=== PATIENT | female | born 1970 | race Caucasian/White ===

== ENCOUNTER 2016-12-09 09:18 | Outpatient (CLI) | payer OTHER ==
[~2016-12-09 09:18] MED LIST: ALLEGRA ALLERG180 MG PO; CALCIUM/VITAMI600 MG PO; ESTRADIOL0.5 MG PO; FLONASE AL50 MCG/ACT; MULTIPLE VITAMIN PO; OMEGA 31000 MG PO; PANTOPRAZOLE SO20 MG PO; PERCOCET1 TA4 PO; VENTOLIN HFA IN; VITAMIN C500 M1 PO; ZOFRAN4 MG PO; [UNRECOGNIZED DRUG - REMARK]
--- NOTE | 2016-12-09 09:57 | DIAGNOSTIC IMAGING REPORT ---
PROCEDURE: XR CHEST 2 VIEW INDICATION: COUGH TECHNIQUE: Two views. COMPARISON: None. FINDINGS: The cardiomediastinal contour and central vasculature are within normal limits. The lungs are clear without focal consolidation, pleural effusion, or pneumothorax. The visualized osseous structures are intact. Surgical clips in the gallbladder fossa. IMPRESSION: 1. Normal chest.
== END 2016-12-09 23:00 ==
LOC: XR SRH 09:18
DX: R05 Cough (principal)

== ENCOUNTER 2017-01-04 16:03 | Outpatient (CLI) | payer OTHER ==
--- NOTE | 2017-01-12 09:59 | DIAGNOSTIC IMAGING REPORT ---
PROCEDURE: MG BILATERAL SCREENING W/CAD INDICATION: SCREENING. Maternal great aunt with a history of breast cancer. TECHNIQUE: Bilateral CC and MLO digital views. COMPARISON: Mammograms 01/04/2016, 12/31/2014 and 12/23/2013. FINDINGS: Computer-aided detection applied. Moderately dense. Scattered microcalcifications. No change. IMPRESSION: 1. Negative mammogram RESULT CODE: 1- Negative. A. A negative report should not delay biopsy if a dominant or clinically suspicious mass is present. 10-15% of cancers are not identified by x-ray. B. A negative report may reinforce clinical impression. C. Adenosis and dense breasts may obscure an underlying neoplasm. D. False positive reports average 6-10%. E.. A yearly screening mammogram is recommended. A reminder letter will be scheduled.
== END 2017-01-04 23:00 ==
LOC: MAM SRH 16:03
DX: Z12.31 Encounter for screening mammogram for malignant neoplasm of breast (principal)

== ENCOUNTER 2017-03-04 18:24 | Emergency (ER) | payer OTHER ==
--- NOTE | 2017-03-04 20:19 | ED CLINICAL REPORT ---
Clinical Report - Physicians/Mid Levels [facility] [address] [place] [address] 03/04/2017 18:26 Patient: TOBY ESCAMILLA Time Seen: 19:33. Arrived- By private vehicle. Historian- patient. HISTORY OF PRESENT ILLNESS Chief Complaint: Injury to the right ankle. The injury happened today. Occurred at home. ( pt was going out to feed her horse and states her two very large dogs ran out, knocking her over and she twisted her right ankle. has pain laterally, limping, difficult to bear weight.). The patient sustained a twisting injury. Patient is experiencing moderate pain. No other injury. REVIEW OF SYSTEMS The patient complains of pain on weight bearing. She has had swelling,, tingling, and weakness. All systems otherwise negative, except as recorded above. PAST HISTORY See nurses notes. Tetanus immunization status is up-to-date. Medications: Tita-D Allergy & Congestion Oral. Protonix Oral. Estrogens Conjugated Oral unk. Allergies: No Known Drug Allergy. SOCIAL HISTORY Never smoker. Occasional alcohol use. No drug use. ADDITIONAL NOTES The nursing notes have been reviewed with agreement regarding the chief complaint, HPI, ROS, PMH and patient medications and allergies. PHYSICAL EXAM Appearance: Alert. Oriented X3. No acute distress. Extremities: Moderate soft-tissue tenderness in the right lateral ankle. Mild bony tenderness in the right lateral ankle. Right lateral ankle: moderate tenderness and swelling of the lateral malleolus. Limited ROM secondary to pain, weakness and swelling (diminished plantar flexion, dorsiflexion, inversion and eversion). Small joint effusion present. Neurovascular intact distally. No signs of infection present in the feet or ankles. Extremities otherwise negative. Neuro, Vascular and Tendons: Vascular status intact. Sensation intact. Motor intact. Tendon function intact. Gait: Gait not tested due to pain. LABS, X-RAYS, AND EKG X-Rays: X-rays are normal. Right ankle negative. The X-rays were independently viewed by me and interpreted contemporaneously by me. PROGRESS AND PROCEDURES Splint Application: Posterior short leg fiberglass splint applied to right ankle and lower leg. Splint applied by nurse with direct supervision by me. Reassessed extremity following splint application. Neurovascular intact. Follow-up recommended within 3 days. they have their own crutches. Course of Care: Patient is stable. Physical exam findings are improved. Symptoms better. CLINICAL IMPRESSION Sprain of the deltoid and talofibular ligament of the right ankle. INSTRUCTIONS Apply ice for 15 minutes four times a day for three days followed by moist heat 10 minutes three times a day for three days as needed and until better. Wear fiberglass splint for one weeks as needed and until better. No strenuous activity. You may walk and bear weight as tolerated. Do not work for three days until better. No dietary restrictions. Warnings: COMPLICATIONS: Complications from this condition are possible. Future problems may include pain. It is important to follow up with a physician for further evaluation and treatment. CONTROLLED SUBSTANCE WARNINGS. GENERAL WARNINGS: Return or contact your physician immediately if your condition worsens or changes unexpectedly, if not improving as expected, or if other problems arise. Your Current Medications: CONTINUE TAKING THE FOLLOWING MEDICATIONS: Tita-D Allergy & Congestion Oral. Estrogens Conjugated Oral : unk. Protonix Oral. Prescription Medications: Oxycodone/APAP 5 mg/325 mg: take 1 tablet orally every 6 hours as needed for pain. Dispense twelve (12). No refill. Follow-up: Follow up with a stretch machine operator- as recommended by your primary care physician- in one week. Reason for referral: right ankle sprain. Understanding of the discharge instructions verbalized by patient and family. Follow-up with: Israel Wong DPM, Podiatry, , [facility], [address] [place] [address], [address] [place] [address] Follow up Monday. Call for an appointment. Reason for referral: right ankle sprain. (Electronically signed by Shauna Sewell PA-C 03/04/2017 22:37)
--- NOTE | 2017-03-04 20:19 | ED ORDER SUMMARY ---
..... Patient: TOBY ESACMILLA OrderSheet [facility] VisitID: [id number] [address] [place] [address] 46y, F Registration Date/Time: 03/04/2017 ORDER SHEET Weight: 98.4 kg Allergies: No Known Drug Allergy GENERAL ORDERS: Ankle 3 or 4V Right (twisted right ankle, swelling laterally) Urgent (19:33 03/04/2017 ABlanchette PA-C) (Ack 19:35 AMcQuoid ER Tech1) (20:08 RFay) Splint (LE) (Right) (Short Leg Posterior) (Fiberglass) (20:16 03/04/2017 ABlanchette PA-C) (20:27 HSoule) MEDICATION ORDERS: Percocet PO 5/325 mg (NOW) (19:41 03/04/2017 TBowen R.N. verbal order read back to ABlanchette PA-C) (19:58 TBowen R.N.) Verbal order read back and verified Zofran ODT PO 4 mg (NOW) (19:42 03/04/2017 TBowen R.N. verbal order read back to ABlanchette PA-C) (19:59 TBowen R.N.) Verbal order read back and verified IV FLUIDS: ORDER SHEET NOTES: [Electronically signed by Geno Aguirre R.N. (20:40 03/04/2017)] [Electronically signed by Shauna Sewell PA-C (22:37 03/04/2017)] [Electronically locked/signed by Geno Aguirre R.N. (20:40 03/04/2017)]
--- NOTE | 2017-03-04 20:19 | ED CLINICAL REPORT ---
Clinical Report - Physicians/Mid Levels [facility] [address] [place] [address] 03/04/2017 18:26 Patient: TOBY ESCAMILLA Time Seen: 19:33. Arrived- By private vehicle. Historian- patient. HISTORY OF PRESENT ILLNESS Chief Complaint: Injury to the right ankle. The injury happened today. Occurred at home. ( pt was going out to feed her horse and states her two very large dogs ran out, knocking her over and she twisted her right ankle. has pain laterally, limping, difficult to bear weight.). The patient sustained a twisting injury. Patient is experiencing moderate pain. No other injury. REVIEW OF SYSTEMS The patient complains of pain on weight bearing. She has had swelling,, tingling, and weakness. All systems otherwise negative, except as recorded above. PAST HISTORY See nurses notes. Tetanus immunization status is up-to-date. Medications: Tita-D Allergy & Congestion Oral. Protonix Oral. Estrogens Conjugated Oral unk. Allergies: No Known Drug Allergy. SOCIAL HISTORY Never smoker. Occasional alcohol use. No drug use. ADDITIONAL NOTES The nursing notes have been reviewed with agreement regarding the chief complaint, HPI, ROS, PMH and patient medications and allergies. PHYSICAL EXAM Appearance: Alert. Oriented X3. No acute distress. Extremities: Moderate soft-tissue tenderness in the right lateral ankle. Mild bony tenderness in the right lateral ankle. Right lateral ankle: moderate tenderness and swelling of the lateral malleolus. Limited ROM secondary to pain, weakness and swelling (diminished plantar flexion, dorsiflexion, inversion and eversion). Small joint effusion present. Neurovascular intact distally. No signs of infection present in the feet or ankles. Extremities otherwise negative. Neuro, Vascular and Tendons: Vascular status intact. Sensation intact. Motor intact. Tendon function intact. Gait: Gait not tested due to pain. LABS, X-RAYS, AND EKG X-Rays: X-rays are normal. Right ankle negative. The X-rays were independently viewed by me and interpreted contemporaneously by me. PROGRESS AND PROCEDURES Splint Application: Posterior short leg fiberglass splint applied to right ankle and lower leg. Splint applied by nurse with direct supervision by me. Reassessed extremity following splint application. Neurovascular intact. Follow-up recommended within 3 days. they have their own crutches. Course of Care: Patient is stable. Physical exam findings are improved. Symptoms better. CLINICAL IMPRESSION Sprain of the deltoid and talofibular ligament of the right ankle. INSTRUCTIONS Apply ice for 15 minutes four times a day for three days followed by moist heat 10 minutes three times a day for three days as needed and until better. Wear fiberglass splint for one weeks as needed and until better. No strenuous activity. You may walk and bear weight as tolerated. Do not work for three days until better. No dietary restrictions. Warnings: COMPLICATIONS: Complications from this condition are possible. Future problems may include pain. It is important to follow up with a physician for further evaluation and treatment. CONTROLLED SUBSTANCE WARNINGS. GENERAL WARNINGS: Return or contact your physician immediately if your condition worsens or changes unexpectedly, if not improving as expected, or if other problems arise. Your Current Medications: CONTINUE TAKING THE FOLLOWING MEDICATIONS: Tita-D Allergy & Congestion Oral. Estrogens Conjugated Oral : unk. Protonix Oral. Prescription Medications: Oxycodone/APAP 5 mg/325 mg: take 1 tablet orally every 6 hours as needed for pain. Dispense twelve (12). No refill. Follow-up: Follow up with a special service representative- as recommended by your primary care physician- in one week. Reason for referral: right ankle sprain. Understanding of the discharge instructions verbalized by patient and family. Follow-up with: Israel Wong DPM, Podiatry, , [facility], [address] [place] [address], [address] [place] [address] Follow up Monday. Call for an appointment. Reason for referral: right ankle sprain. (Electronically signed by Shauna Sewell PA-C 03/04/2017 22:37)
--- NOTE | 2017-03-04 20:19 | ED NURSING NOTES ---
Clinical Report - Nurses [facility] [address] [place] [address] 03/04/2017 18:26 Patient: TOBY ESCAMILLA TRIAGE Triage time 19:33. Acuity: LEVEL 3. Chief Complaint: INJURY TO RIGHT ANKLE. --19:38 Maday Tao. 19:32 03/04/17. BP: 144/108. HR: 74. RR: 16. O2 saturation: 99%. Temp: 97.9 F. Pain level now: 07/25. --19:38 Maday Tao. Weight: 98.4 kg. Height/Length: 70 inches. BMI: 31.1. --19:36 Dinh R.N. Medications Estrogens Conjugated Oral unk. --19:33 Maday Tao. Protonix Oral. --19:34 Maday Tao. Tita-D Allergy & Congestion Oral. --19:34 Maday Tao. Allergies No Known Drug Allergy. --19:33 Maday Tao. History Arrived by private vehicle. Historian: patient. Accompanied by family. ( pt tripped over her dog and twisted her right ankle). 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 SOCIAL HX: Light tobacco smoker. Occasional alcohol use. No drug use. No infectious disease exposure. SELF HARM ASSESSMENT: A self harm assessment was performed. The patient answered "no" to the question "Have you recently felt down, depressed, or hopeless?", "Have you noticed less interest or pleasure in doing things?", "Do you have thoughts of harming or killing yourself?", "Are you here because you tried to hurt yourself?", "Have you ever tried to hurt yourself before today?", "Have you recently had thoughts about harming or killing others?" and "Do you have any dangerous items in your possession?". FALL RISK ASSESSMENT: Fall risk assessment completed. No fall risk identified. NUTRITIONAL RISK ASSESSMENT: The nutritional risk assessment revealed no deficiencies. FUNCTIONAL ASSESSMENT: Functional assessment: no impairments noted. LEARNING NEEDS ASSESSMENT: The learning needs assessment revealed no barriers. ABUSE ASSESSMENT: Abuse assessment: The patient was asked "Do you feel safe in your home?". SKIN INTEGRITY ASSESSMENT: Skin integrity risk assessment completed. No skin integrity risk identified. --19:38 Agus Tao PROBLEMS: Allergies. Gastroesophageal Reflux Disease. --19:35 Maday Tao. ADDITIONAL SURGERIES: Gallbladder Surgery. Hysterectomy. Nasal septoplasty. --19:34 Maday Tao. Interventions ID band on patient. To treatment room. --19:38 Agus Toa PHYSICAL ASSESSMENT To room via wheelchair. GENERAL / NEURO / PSYCH: Oriented X 4. Alert. Appears in no acute distress. EXTREMITIES: Capillary refill is less than 2 seconds in the extremities. Extremity pulses are within normal limits. Extremities exhibit normal ROM. Neuro-vascular status intact to the extremity. Normal gait. Right posterior ankle: tenderness and swelling. SKIN: Skin intact. Skin is warm and dry. --19:38 Agus Tao NURSING PROGRESS NOTES Patient identifiers checked. Call light placed in reach. Side rails up x 1. Bed placed in lowest position. Brakes of bed on. --19:39 Agus Tao 19:48 03/04/2017 Percocet (Oxycodone-Acetaminophen) PO 5/325 mg Tablets 1 tab given. Allergies verified, confirmed 5 rights and sedative warning given to the patient and patient's family. --19:58 Agus Tao 19:49 03/04/2017 Zofran ODT (Ondansetron) PO 4 mg given. Allergies verified and confirmed 5 rights. --19:59 Maday Tao. Short leg fiberglass lower extremity splint applied to right ankle by nurse. Distal pulses intact, sensation intact and motor within normal limits. --20:39 Agus Tao DISPOSITION / DISCHARGE Departure time: 20:40. Condition at departure: improved. No learning barriers present. Discharge instructions provided and reviewed with the patient. Reviewed warnings (no driving with pain medication). Reviewed medication(s) side effects, precautions, dosing and course information. Prescription(s) given to the patient. Reviewed referral to a material control specialist. Work note given. Patient verbalized understanding. Written instructions provided in Citizen Of [place]. No treatment instructions, diet instructions, activity restrictions, follow up contact number given or stop smoking instructions. The patient was discharged by the nurse practitioner. She was discharged home and accompanied by spouse. She left the Emergency Department in a wheelchair and via private vehicle. Spouse driving. FALL RISK ASSESSMENT: Fall risk assessment completed. No fall risk identified. --20:40 Agus Tao 20:39 03/04/17. BP: deferred. HR: deferred. RR: deferred. O2 saturation: deferred. Temp: deferred. Pain level now: 01/23. --20:40 Agus Tao Locked/Released at 03/04/2017 20:40 by Agus Tao
--- NOTE | 2017-03-04 20:19 | ED ORDER SUMMARY ---
..... Patient: TOBY ESCAMILLA OrderSheet [facility] VisitID: [id number] [address] [place] [address] 46y, F Registration Date/Time: 03/04/2017 ORDER SHEET Weight: 98.4 kg Allergies: No Known Drug Allergy GENERAL ORDERS: Ankle 3 or 4V Right (twisted right ankle, swelling laterally) Urgent (19:33 03/04/2017 ABlanchette PA-C) (Ack 19:35 AMcQuoid ER Tech1) (20:08 RFay) Splint (LE) (Right) (Short Leg Posterior) (Fiberglass) (20:16 03/04/2017 ABlanchette PA-C) (20:27 HSoule) MEDICATION ORDERS: Percocet PO 5/325 mg (NOW) (19:41 03/04/2017 TBowen R.N. verbal order read back to ABlanchette PA-C) (19:58 TBowen R.N.) Verbal order read back and verified Zofran ODT PO 4 mg (NOW) (19:42 03/04/2017 TBowen R.N. verbal order read back to ABlanchette PA-C) (19:59 TBowen R.N.) Verbal order read back and verified IV FLUIDS: ORDER SHEET NOTES: [Electronically signed by Geno Aguirre R.N. (20:40 03/04/2017)] [Electronically signed by Shauna Sewell PA-C (22:37 03/04/2017)] [Electronically locked/signed by Geno Aguirre R.N. (20:40 03/04/2017)]
--- NOTE | 2017-03-04 20:19 | ED NURSING NOTES ---
Clinical Report - Nurses [facility] [address] [place] [address] 03/04/2017 18:26 Patient: TOBY ESCAMILLA TRIAGE Triage time 19:33. Acuity: LEVEL 3. Chief Complaint: INJURY TO RIGHT ANKLE. --19:38 Maday Tao. 19:32 03/04/17. BP: 144/108. HR: 74. RR: 16. O2 saturation: 99%. Temp: 97.9 F. Pain level now: 07/25. --19:38 Maday Tao. Weight: 98.4 kg. Height/Length: 70 inches. BMI: 31.1. --19:36 Dinh R.N. Medications Estrogens Conjugated Oral unk. --19:33 Maday Tao. Protonix Oral. --19:34 Maday Tao. Tita-D Allergy & Congestion Oral. --19:34 aMday Tao. Allergies No Known Drug Allergy. --19:33 Maday Tao. History Arrived by private vehicle. Historian: patient. Accompanied by family. ( pt tripped over her dog and twisted her right ankle). 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 SOCIAL HX: Light tobacco smoker. Occasional alcohol use. No drug use. No infectious disease exposure. SELF HARM ASSESSMENT: A self harm assessment was performed. The patient answered "no" to the question "Have you recently felt down, depressed, or hopeless?", "Have you noticed less interest or pleasure in doing things?", "Do you have thoughts of harming or killing yourself?", "Are you here because you tried to hurt yourself?", "Have you ever tried to hurt yourself before today?", "Have you recently had thoughts about harming or killing others?" and "Do you have any dangerous items in your possession?". FALL RISK ASSESSMENT: Fall risk assessment completed. No fall risk identified. NUTRITIONAL RISK ASSESSMENT: The nutritional risk assessment revealed no deficiencies. FUNCTIONAL ASSESSMENT: Functional assessment: no impairments noted. LEARNING NEEDS ASSESSMENT: The learning needs assessment revealed no barriers. ABUSE ASSESSMENT: Abuse assessment: The patient was asked "Do you feel safe in your home?". SKIN INTEGRITY ASSESSMENT: Skin integrity risk assessment completed. No skin integrity risk identified. --19:38 Agus Tao PROBLEMS: Allergies. Gastroesophageal Reflux Disease. --19:35 Maday Tao. ADDITIONAL SURGERIES: Gallbladder Surgery. Hysterectomy. Nasal septoplasty. --19:34 Maday Tao. Interventions ID band on patient. To treatment room. --19:38 Agus Tao PHYSICAL ASSESSMENT To room via wheelchair. GENERAL / NEURO / PSYCH: Oriented X 4. Alert. Appears in no acute distress. EXTREMITIES: Capillary refill is less than 2 seconds in the extremities. Extremity pulses are within normal limits. Extremities exhibit normal ROM. Neuro-vascular status intact to the extremity. Normal gait. Right posterior ankle: tenderness and swelling. SKIN: Skin intact. Skin is warm and dry. --19:38 Agus Tao NURSING PROGRESS NOTES Patient identifiers checked. Call light placed in reach. Side rails up x 1. Bed placed in lowest position. Brakes of bed on. --19:39 Agus Tao 19:48 03/04/2017 Percocet (Oxycodone-Acetaminophen) PO 5/325 mg Tablets 1 tab given. Allergies verified, confirmed 5 rights and sedative warning given to the patient and patient's family. --19:58 Agus Tao 19:49 03/04/2017 Zofran ODT (Ondansetron) PO 4 mg given. Allergies verified and confirmed 5 rights. --19:59 Maday Tao. Short leg fiberglass lower extremity splint applied to right ankle by nurse. Distal pulses intact, sensation intact and motor within normal limits. --20:39 Agus Tao DISPOSITION / DISCHARGE Departure time: 20:40. Condition at departure: improved. No learning barriers present. Discharge instructions provided and reviewed with the patient. Reviewed warnings (no driving with pain medication). Reviewed medication(s) side effects, precautions, dosing and course information. Prescription(s) given to the patient. Reviewed referral to a program advisor. Work note given. Patient verbalized understanding. Written instructions provided in Citizen Of [place]. No treatment instructions, diet instructions, activity restrictions, follow up contact number given or stop smoking instructions. The patient was discharged by the nurse practitioner. She was discharged home and accompanied by spouse. She left the Emergency Department in a wheelchair and via private vehicle. Spouse driving. FALL RISK ASSESSMENT: Fall risk assessment completed. No fall risk identified. --20:40 Agus Tao 20:39 03/04/17. BP: deferred. HR: deferred. RR: deferred. O2 saturation: deferred. Temp: deferred. Pain level now: 01/23. --20:40 Agus Tao Locked/Released at 03/04/2017 20:40 by Agus Tao
--- NOTE | 2017-03-04 22:37 | ED MED RECONCILIATION SUMMARY ---
Patient: TOBY ESCAMILLA Medication Reconciliation Report [facility] VisitID: [id number] [address] [place] [address] 46y, F Registration Date/Time: 03/04/2017 Weight: 98.4 kg Height/Length: 70 in. BMI: 31.1 ALLERGIES: No Known Drug Allergy The patient's Home Medications are listed below: CONTINUE TAKING THE FOLLOWING MEDICATIONS: Tita-D Allergy & Congestion Oral Estrogens Conjugated Oral unk Protonix Oral The source(s) of the original Home Medication information: Not obtained. The following Medications were given to the patient in the Emergency Department: Percocet [PO] PO 1 tab, administered: 03/04/2017 7:48:00 PM Zofran ODT [PO] PO 4 mg, administered: 03/04/2017 7:49:00 PM The following Medications were prescribed to the patient: Oxycodone/APAP 5 mg/325 mg: take 1 tablet orally every 6 hours as needed for pain. Dispense twelve (12). No refill. -- Shauna Sewell PA-C
--- NOTE | 2017-03-04 22:37 | ED DISCHARGE INSTRUCTIONS ---
Patient: TOBY ESCAMILLA General Instructions [facility] VisitID: [id number] [place] [address] 46y, F Registration Date/Time: 03/04/2017 Sprain of the deltoid and talofibular ligament of the right ankle. INSTRUCTIONS Apply ice for 15 minutes four times a day for three days followed by moist heat 10 minutes three times a day for three days as needed and until better. Wear fiberglass splint for one weeks as needed and until better. No strenuous activity. You may walk and bear weight as tolerated. Do not work for three days until better. No dietary restrictions. Warnings: COMPLICATIONS: Complications from this condition are possible. Future problems may include pain. It is important to follow up with a physician for further evaluation and treatment. CONTROLLED SUBSTANCE WARNINGS. GENERAL WARNINGS: Return or contact your physician immediately if your condition worsens or changes unexpectedly, if not improving as expected, or if other problems arise. Your Current Medications: CONTINUE TAKING THE FOLLOWING MEDICATIONS: Tita-D Allergy & Congestion Oral. Estrogens Conjugated Oral : unk. Protonix Oral. Prescription Medications: Oxycodone/APAP 5 mg/325 mg: take 1 tablet orally every 6 hours as needed for pain. Dispense twelve (12). No refill. Follow-up: Follow up with a crayon grader- as recommended by your primary care physician- in one week. Reason for referral: right ankle sprain. Understanding of the discharge instructions verbalized by patient and family. Follow-up with: Israel Wong DPM, Podiatry, , [facility], [address] [place] [address], [address] [address] Follow up Monday. Call for an appointment. Reason for referral: right ankle sprain. ADDITIONAL INFORMATION Sprain, Ankle,With X-Ray A sprain is an injury to the ligaments or capsule that holds a joint together. There are no broken bones. Most sprains take from four to six weeks to heal. If the ligament is completely torn (severe sprain), it can take several months to recover. Mild to moderate sprains may be treated with an elastic wrap or an in-shoe splint to provide support and prevent re-injury. A mild sprain may not require any additional support. A severe sprain may require surgery to repair. Home care The following guidelines will help you care for your injury at home: Stay off the injured leg as much as possible until you can walk on it without pain. If you have a lot of pain with walking, crutches or a walker may be prescribed. (These can be rented or purchased at many pharmacies and surgical or orthopedic supply stores). Follow your doctor's advice regarding when to begin bearing weight on that leg. Keep your leg elevated to reduce pain and swelling. When sleeping, place a pillow under the injured leg. When sitting, support the injured leg so it is level with your waist. This is very important during the first 48 hours. Apply an ice pack (ice cubes in a plastic bag, wrapped in a towel) over the injured area for 20 minutes every 12 hours the first day. You can place the ice pack directly over the splint/cast. If you were given a boot, open it to apply the ice pack. Continue with ice packs 34 times a day for the next two days, then as needed for the relief of pain and swelling. You may use acetaminophen or ibuprofen to control pain, unless another pain medicine was prescribed. If you have chronic liver or kidney disease or ever had a stomach ulcer or GI bleeding, talk with your doctor before using these medicines. You may return to sports after healing, when you can run without pain. A sprained ankle is at risk for re-injury during the first six weeks. During that time, protect your ankle with an in-shoe splint that prevents tilting of your ankle from side to side. This is very important if you do active work or play sports during that time. Follow-up care Any X-rays you had today dont show any broken bones, breaks, or fractures. Sometimes fractures dont show up on the first X-ray. Bruises and sprains can sometimes hurt as much as a fracture. These injuries can take time to heal completely. If your symptoms dont improve or they get worse, talk with your doctor. You may need a repeat X-ray. When to seek medical care Get prompt medical attention if any of the following occur: The plaster cast or splint gets wet or soft The fiberglass cast or splint gets wet and does not dry for 24 hours Pain or swelling increases, or redness appears Toes become cold, blue, numb or tingly Re-injure your ankle You have been given the following additional information: Sprain, Ankle, With X-Ray No strenuous activity. You may walk and bear weight as tolerated. Do not work for three days until better. (Electronically signed by Shauna Sewell PA-C 03/04/2017 22:37)
--- NOTE | 2017-03-04 22:37 | ED MAR SUMMARY ---
..... Medication Administration Record [facility] [address] [place] [address] [address] Patient: TOBY ESCAMILLA Visit ID: [id number] 46y, F Weight: 98.4 kg Height/Length: 70 in BMI: 31.1 ALLERGIES: No Known Drug Allergy Given 19:48 03/04/2017 Dinh, R.N. Medication Administered: PERCOCET [PO] (OXYCODONE-ACETAMINOPHEN), Dose: 1 tab 5/325 mg Tablets PO. Medication Ordered: Percocet PO 5/325 mg (NOW). Given 19:49 03/04/2017 Dinh, R.N. Medication Administered: ZOFRAN ODT [PO] (ONDANSETRON), Dose: 4 mg PO. Medication Ordered: Zofran ODT PO 4 mg (NOW).
--- NOTE | 2017-03-04 22:37 | ED MED RECONCILIATION SUMMARY ---
Patient: TOBY ESCAMILLA Medication Reconciliation Report [facility] VisitID: [id number] [address] [place] [address] 46y, F Registration Date/Time: 03/04/2017 Weight: 98.4 kg Height/Length: 70 in. BMI: 31.1 ALLERGIES: No Known Drug Allergy The patient's Home Medications are listed below: CONTINUE TAKING THE FOLLOWING MEDICATIONS: Tita-D Allergy & Congestion Oral Estrogens Conjugated Oral unk Protonix Oral The source(s) of the original Home Medication information: Not obtained. The following Medications were given to the patient in the Emergency Department: Percocet [PO] PO 1 tab, administered: 03/04/2017 7:48:00 PM Zofran ODT [PO] PO 4 mg, administered: 03/04/2017 7:49:00 PM The following Medications were prescribed to the patient: Oxycodone/APAP 5 mg/325 mg: take 1 tablet orally every 6 hours as needed for pain. Dispense twelve (12). No refill. -- Shauna Sewell PA-C
--- NOTE | 2017-03-04 22:37 | ED DISCHARGE INSTRUCTIONS ---
Patient: TOBY ESCAMILLA General Instructions [facility] VisitID: [id number] [place] [address] 46y, F Registration Date/Time: 03/04/2017 Sprain of the deltoid and talofibular ligament of the right ankle. INSTRUCTIONS Apply ice for 15 minutes four times a day for three days followed by moist heat 10 minutes three times a day for three days as needed and until better. Wear fiberglass splint for one weeks as needed and until better. No strenuous activity. You may walk and bear weight as tolerated. Do not work for three days until better. No dietary restrictions. Warnings: COMPLICATIONS: Complications from this condition are possible. Future problems may include pain. It is important to follow up with a physician for further evaluation and treatment. CONTROLLED SUBSTANCE WARNINGS. GENERAL WARNINGS: Return or contact your physician immediately if your condition worsens or changes unexpectedly, if not improving as expected, or if other problems arise. Your Current Medications: CONTINUE TAKING THE FOLLOWING MEDICATIONS: Tita-D Allergy & Congestion Oral. Estrogens Conjugated Oral : unk. Protonix Oral. Prescription Medications: Oxycodone/APAP 5 mg/325 mg: take 1 tablet orally every 6 hours as needed for pain. Dispense twelve (12). No refill. Follow-up: Follow up with a principal android developer- as recommended by your primary care physician- in one week. Reason for referral: right ankle sprain. Understanding of the discharge instructions verbalized by patient and family. Follow-up with: Israel Wong DPM, Podiatry, , [facility], [address] [place] [address], [address] [address] Follow up Monday. Call for an appointment. Reason for referral: right ankle sprain. ADDITIONAL INFORMATION Sprain, Ankle,With X-Ray A sprain is an injury to the ligaments or capsule that holds a joint together. There are no broken bones. Most sprains take from four to six weeks to heal. If the ligament is completely torn (severe sprain), it can take several months to recover. Mild to moderate sprains may be treated with an elastic wrap or an in-shoe splint to provide support and prevent re-injury. A mild sprain may not require any additional support. A severe sprain may require surgery to repair. Home care The following guidelines will help you care for your injury at home: Stay off the injured leg as much as possible until you can walk on it without pain. If you have a lot of pain with walking, crutches or a walker may be prescribed. (These can be rented or purchased at many pharmacies and surgical or orthopedic supply stores). Follow your doctor's advice regarding when to begin bearing weight on that leg. Keep your leg elevated to reduce pain and swelling. When sleeping, place a pillow under the injured leg. When sitting, support the injured leg so it is level with your waist. This is very important during the first 48 hours. Apply an ice pack (ice cubes in a plastic bag, wrapped in a towel) over the injured area for 20 minutes every 12 hours the first day. You can place the ice pack directly over the splint/cast. If you were given a boot, open it to apply the ice pack. Continue with ice packs 34 times a day for the next two days, then as needed for the relief of pain and swelling. You may use acetaminophen or ibuprofen to control pain, unless another pain medicine was prescribed. If you have chronic liver or kidney disease or ever had a stomach ulcer or GI bleeding, talk with your doctor before using these medicines. You may return to sports after healing, when you can run without pain. A sprained ankle is at risk for re-injury during the first six weeks. During that time, protect your ankle with an in-shoe splint that prevents tilting of your ankle from side to side. This is very important if you do active work or play sports during that time. Follow-up care Any X-rays you had today dont show any broken bones, breaks, or fractures. Sometimes fractures dont show up on the first X-ray. Bruises and sprains can sometimes hurt as much as a fracture. These injuries can take time to heal completely. If your symptoms dont improve or they get worse, talk with your doctor. You may need a repeat X-ray. When to seek medical care Get prompt medical attention if any of the following occur: The plaster cast or splint gets wet or soft The fiberglass cast or splint gets wet and does not dry for 24 hours Pain or swelling increases, or redness appears Toes become cold, blue, numb or tingly Re-injure your ankle You have been given the following additional information: Sprain, Ankle, With X-Ray No strenuous activity. You may walk and bear weight as tolerated. Do not work for three days until better. (Electronically signed by Shauna Sewell PA-C 03/04/2017 22:37)
--- NOTE | 2017-03-04 22:37 | ED MAR SUMMARY ---
..... Medication Administration Record [facility] [address] [place] [address] Patient: TOBY ESCAMILLA Visit ID: [id number] 46y, F Weight: 98.4 kg Height/Length: 70 in BMI: 31.1 ALLERGIES: No Known Drug Allergy Given 19:48 03/04/2017 Dinh, R.N. Medication Administered: PERCOCET [PO] (OXYCODONE-ACETAMINOPHEN), Dose: 1 tab 5/325 mg Tablets PO. Medication Ordered: Percocet PO 5/325 mg (NOW). Given 19:49 03/04/2017 Dinh, R.N. Medication Administered: ZOFRAN ODT [PO] (ONDANSETRON), Dose: 4 mg PO. Medication Ordered: Zofran ODT PO 4 mg (NOW).
--- NOTE | 2017-03-04 22:48 | DIAGNOSTIC IMAGING REPORT ---
PROCEDURE: XR ANKLE 3 OR 4 VIEWS - RIGHT INDICATION: TRAUMA/INJURY TECHNIQUE: Four views of the right ankle. COMPARISON: None. FINDINGS: Normal mineralization. No fractures. Ankle mortise intact. Normal osseous alignment. Small tibiotalar joint effusion. No suspicious soft-tissue calcification or radiodense foreign bodies. Achilles tendon appears grossly normal. Enthesopathy at the Achilles insertion on the calcaneus. Moderate lateral periarticular soft tissue swelling. Surgical changes in the distal first metatarsal region. IMPRESSION: 1. Intact right ankle. 2. Lateral periarticular soft tissue swelling. 3. Prior surgical change of the first metatarsal head.
== END 2017-03-04 20:30 | disposition home or self-care (01) ==
LOC: ED SRH 18:24
DX: S93.421A Sprain of deltoid ligament of right ankle, initial encounter (principal); S93.491A Sprain of other ligament of right ankle, initial encounter; W54.1XXA Struck by dog, initial encounter; Y93.89 Activity, other specified; Y99.9 Unspecified external cause status; Y92.009 Unspecified place in unspecified non-institutional (private) residence as the place of occurrence of the external cause; Z72.0 Tobacco use

== ENCOUNTER 2017-03-07 08:50 | Outpatient (CLI) | payer OTHER ==
--- NOTE | 2017-03-07 14:18 | DIAGNOSTIC IMAGING REPORT ---
PROCEDURE: MR LOWER EXT JOINT WO CONT-RT INDICATION: RT ANKLE INJURY,EVAL ACHILLES FOR TENDON TEAR TECHNIQUE: T1 and STIR sagittal, axial, coronal and coronal-oblique images. COMPARISON: Right ankle x-ray 03/04/2017. FINDINGS: Torn anterior talofibular ligament with a sprain/partial tear of the calcaneofibular ligament. There is also a partial tear of the deltoid ligaments. The tibiofibular and posterior talofibular ligaments are intact. The peroneus brevis, peroneus longus, flexor hallucis longus, posterior tibialis and flexor digitorum longus tendons are intact. Extensor tendons are also intact. Normal Achilles tendon. Plantar calcaneal spur. Normal sinus tarsi. Degenerative changes between the navicular and medial cuneiform. There is a tibiotalar joint effusion. Extensive subcutaneous edema laterally extending to the dorsum of the foot and to a lesser extent the posterior aspect of the ankle. IMPRESSION: 1. Torn anterior talofibular ligament 2. Partial tear/strain of the calcaneofibular ligament 3. Deltoid ligament partial tear 4. Tibiotalar joint effusion 5. Extensive subcutaneous edema laterally and over the dorsum of the foot, and to a lesser extent posterior medial aspect of the ankle 6. Midfoot degenerative changes 7. Results discussed with Dr. Wong.
== END 2017-03-07 23:00 ==
LOC: MRI SRH 08:50
DX: S93.491A Sprain of other ligament of right ankle, initial encounter (principal); S93.411A Sprain of calcaneofibular ligament of right ankle, initial encounter; S93.421A Sprain of deltoid ligament of right ankle, initial encounter; M25.471 Effusion, right ankle

== ENCOUNTER 2017-03-24 09:00 | Day surgery (SDC) | payer OTHER ==
--- NOTE | 2017-03-23 19:37 | HISTORY AND PHYSICAL ---
ADMITTED: 03/24/2017 HISTORY OF PRESENT ILLNESS: The patient is a 47-year-old female with a chief complaint of a painful right ankle. States that she was outside couple weeks ago and was inadvertently run over by her 2 big dogs. We had an MRI performed at [facility], which revealed torn ligaments of the right ankle. She has been nonweightbearing with the aid of a knee scooter. States the ankle is still painful and she would like to have it surgically repaired. MEDICAL/SURGICAL HISTORY: Past medical history: Includes the history of chest pain, cancer, back problems, hypotension, and asthma. Surgical history: She has had her left and right foot operated on. PCP: Negro Negron MD. MEDICATIONS: 1. Vitamin D 1 p.o. daily. 2. Nortriptyline 10 mg 1 by mouth daily. 3. Pantoprazole 20 mg tablet 1 by mouth daily. 4. Ondansetron HCL 4 mg 1 by mouth daily. 5. ProAir HFA 90 mcg actuation aerosol 1-2 puffs as needed. 6. Rizatriptan 10 mg 1 by mouth daily. ALLERGIES: 1. REPORTS AN ALLERGY TO BEES. SOCIAL HISTORY: She is . 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 Does not drink nor smoke. FAMILY HISTORY: Positive for diabetes. REVIEW OF SYSTEMS: Ten-point review of systems noncontributory to the chief complaint. PHYSICAL EXAMINATION: GENERAL: The patient is alert, oriented x3. HEENT: PERRLA. Normocephalic. Pupils reactive to light. HEART: Regular rate and rhythm. Regular S1 and S2. No murmurs, gallops, or murmurs. LUNGS: Respirations clear to auscultation. No wheezing, rhonchi, or rales. ABDOMEN: Soft, tender, nondistended. No palpable masses. EXTREMITIES: Lower extremity/Vascular: Dorsalis pedis and posterior tibial pulses are palpable. Edema is receding on the anterolateral aspect of the right ankle. Crepitus in the ankle. Pain with palpation to the anterolateral aspect. Positive anterior drawer sign. LAB/IMAGING: Imaging: As stated, had MRI at [facility] revealed a torn anterior talar, calcaneal fibular ligaments. IMPRESSION: 1. Torn lateral ankle collateral ligaments, right. 2. Ankle instability. PLAN: The patient is scheduled for an outpatient procedure consisting of an ankle arthroscopy with debridement and an Arthrex internal brace stabilization procedure. No contraindications to surgery at this time. Surgery is scheduled again on an outpatient basis at [facility] on 03/24/2017.
--- NOTE | 2017-03-23 19:37 | HISTORY AND PHYSICAL ---
ADMITTED: 03/24/2017 HISTORY OF PRESENT ILLNESS: The patient is a 47-year-old female with a chief complaint of a painful right ankle. States that she was outside couple weeks ago and was inadvertently run over by her 2 big dogs. We had an MRI performed at [facility], which revealed torn ligaments of the right ankle. She has been nonweightbearing with the aid of a knee scooter. States the ankle is still painful and she would like to have it surgically repaired. MEDICAL/SURGICAL HISTORY: Past medical history: Includes the history of chest pain, cancer, back problems, hypotension, and asthma. Surgical history: She has had her left and right foot operated on. PCP: Negro Negron MD. MEDICATIONS: 1. Vitamin D 1 p.o. daily. 2. Nortriptyline 10 mg 1 by mouth daily. 3. Pantoprazole 20 mg tablet 1 by mouth daily. 4. Ondansetron HCL 4 mg 1 by mouth daily. 5. ProAir HFA 90 mcg actuation aerosol 1-2 puffs as needed. 6. Rizatriptan 10 mg 1 by mouth daily. ALLERGIES: 1. REPORTS AN ALLERGY TO BEES. SOCIAL HISTORY: She is . 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 Does not drink nor smoke. FAMILY HISTORY: Positive for diabetes. REVIEW OF SYSTEMS: Ten-point review of systems noncontributory to the chief complaint. PHYSICAL EXAMINATION: GENERAL: The patient is alert, oriented x3. HEENT: PERRLA. Normocephalic. Pupils reactive to light. HEART: Regular rate and rhythm. Regular S1 and S2. No murmurs, gallops, or murmurs. LUNGS: Respirations clear to auscultation. No wheezing, rhonchi, or rales. ABDOMEN: Soft, tender, nondistended. No palpable masses. EXTREMITIES: Lower extremity/Vascular: Dorsalis pedis and posterior tibial pulses are palpable. Edema is receding on the anterolateral aspect of the right ankle. Crepitus in the ankle. Pain with palpation to the anterolateral aspect. Positive anterior drawer sign. LAB/IMAGING: Imaging: As stated, had MRI at [facility] revealed a torn anterior talar, calcaneal fibular ligaments. IMPRESSION: 1. Torn lateral ankle collateral ligaments, right. 2. Ankle instability. PLAN: The patient is scheduled for an outpatient procedure consisting of an ankle arthroscopy with debridement and an Arthrex internal brace stabilization procedure. No contraindications to surgery at this time. Surgery is scheduled again on an outpatient basis at [facility] on 03/24/2017.
[~2017-03-24] VITALS: Ht 175.3 cm; Wt 101.7 kg
[2017-03-24] MEDS ORDERED: PERCOCET1 TA4 PO (13:14)
[2017-03-24] MEDS ORDERED: ZOFRAN4 MG PO (13:14)
--- NOTE | 2017-03-24 13:16 | Provider's Discharge Care Plan ---
Problem, Goal, Plan Problem List 1. Sprain of other ligament of right ankle, sequela Goals: Improve function Instructions: Increase activity level
--- NOTE | 2017-03-24 13:16 | Provider's Discharge Care Plan ---
Problem, Goal, Plan Problem List 1. Sprain of other ligament of right ankle, sequela Goals: Improve function Instructions: Increase activity level
[2017-03-24 15:55] VITALS: BP 138/75
--- NOTE | 2017-03-24 19:47 | OPERATIVE REPORT ---
DATE OF SURGERY: 03/24/2017 SURGEON: Israel Wong DPM PREOPERATIVE DIAGNOSIS: 1. Torn ankle ligaments POSTOPERATIVE DIAGNOSES: 1. Hemorrhagic synovitis 2. Torn anterior calcaneofibular ligaments with hematoma PROCEDURES PERFORMED: 1. Ankle arthroscopy with debridement 2. Lateral ankle stabilization and internal brace HEMOSTASIS: Achieved by pneumatic thigh tourniquet inflated to 275 mmHg pressure. TOURNIQUET TIME: Total tourniquet time 72 minutes. MATERIALS: 3-0 and 4-0 Polysorb, 1 internal Arthrex internal brace kit with 2 SwiveLocks, #2 FiberTape and 4-0 Polysorb. INJECTABLES: Injected 20 mL of 0.5% bupivacaine plain. COMPLICATIONS: None. CONDITION: The patient tolerated anesthesia and procedure well. INDICATIONS: The patient is a 47-year-old female who sustained a blunt trauma to her right lateral ankle. She was inadvertently run over by her 2 very large dogs. MRI revealed ruptures of the anterior talocalcaneal fibular ligaments, respectively, and the strain all over the deltoid ligament. There are no contraindications to surgery at this time. She is scheduled for an arthroscopy with debridement, stabilization and collateral ligament repair. There are no contraindications at this time. SURGICAL TECHNIQUE: The patient was brought to the operating room, placed on operating table in a supine position. At this time, a general anesthetic was administered, pneumatic tourniquet was then placed above the right knee. Right lower extremity was prepped and draped in normal sterile fashion. An intraoperative pause was carried out for positive identification, proper limb, consent form verified and confirmed, as well as the 2 g of IV cefazolin was identified as being administered. An Esmarch bandage was then utilized to exsanguinate the limb. Tourniquet was then inflated. Attention was then directed to procedure #1. Ankle arthroscopy with debridement: At this time, the leg was placed in a leg lomeli, and an ankle distractor was then applied. An 18-gauge needle was then used medially on the anterior aspect of the medial gutter. Small incision was made with an 11-blade, portal dissection was carried out. A blunt trocar was then introduced. At this time, the camera was then slowly introduced into the anterior medial gutter. Upon entry, there was noted to be significant hemorrhagic synovitis. Flow was increased and distraction as well, which revealed significant hemorrhagic synovium, as well as remnants of the anterior talofibular ligament seen anterior and laterally aspect of the lateral gutter. Corresponding linear incision was then made on the anterior aspect of the gutter. A deep incision made with 11-blade and dissection carried out via portal dissection. Small joint shaver was then placed. The hemorrhagic synovium and remnants of the anterior talofibular ligament were then debrided. Posterior talofibular ligament was noted to be intact. There are some small deficits in the articulating surface. Slight osteochondral defect noted, particularly posterior and medially. Approximately 3000 L of Lactated Ringer's were placed through the joint. The camera and shaver were then transpositioned in the corresponding portals and any remaining hemorrhagic synovium anterior medial and posterior was resected. The instrumentation was removed. Portals were then reapproximated with 4-0 Polysorb. Attention was then directed to procedure #2. Lateral ankle stabilization: At this time, an incision was made on the anterior distal third of the fibula and curving distally and anteriorly. It was deepened by sharp and blunt dissection. The periosteum was then incised and reflected. Upon reflection of the periosteum, there is noted to be significant hematoma surrounding the anterior and calcaneofibular ligaments, respectively. It was curetted free. Periosteum was then reflected. A guidewire was then driven on the distal anterior fibula directed obliquely and superiorly towards the lateral gutter, verified under fluoroscopy for proper placement. It was then drilled with 2.7 drill, tapped accordingly, and a SwiveLock and #2 FiberTape was inserted. Dissection was then carried anteriorly and medially. A bent Hohmann was then placed superiorly to the neck. The portions of the torn anterior talofibular ligament were resected and removed. A guidewire was then placed anterior and laterally and directed posterior medially towards the medial malleolus. Verified under fluoroscopy for proper placement, as well as being inferior to the articulating surface. It was then drilled with a 2.7 drill, overdrilled with the 3.4 and then tapped. A SwiveLock was loaded with the FiberTape. With the foot held in a neutral position, the FiberTape was then placed under proper tension. The area was flushed. The remaining anterior talofibular ligament was replicated with 3-0 Polysorb. The retinaculum and periosteum was repaired in a [id number] fashion with 3-0 Polysorb, subcutaneous with 4-0 and skin edges reapproximated in running fashion with 4-0 Surgipro. The areas were locally anesthetized with approximately 20 mL of 0.5% bupivacaine. Tourniquet was released at 72 minutes. There was good reactive hyperemia and good digital perfusion. There was no bleeding noted coming from the incisions. Compressive dressing was applied. The patient tolerated anesthesia, left the operating room with vital signs stable. While in recovery, written instructions administered for weightbearing as tolerated with a postoperative boot and knee scooter. I did receive a call from the recovery nurses on the third floor that there was some strike-through bleeding and told them to reinforce the dressing with ABDs and additional Justin bandage. Made her to elevate and ice it. Follow back with me in 3-5 days.
== END 2017-03-24 16:18 | disposition home or self-care (01) ==
LOC: OR SRH 09:00 → SCU SRH 09:04 → OR SRH 09:30
PROVIDERS: Podiatrist
PROC: 0MQQ0ZZ Repair Right Ankle Bursa and Ligament, Open Approach (ICD-10-PCS; principal; 2017-03-24 10:30)
PROC: 0SBF4ZZ Excision of Right Ankle Joint, Percutaneous Endoscopic Approach (ICD-10-PCS; principal; 2017-03-24 10:30)
DX: S93.411A Sprain of calcaneofibular ligament of right ankle, initial encounter (principal); S93.491A Sprain of other ligament of right ankle, initial encounter; M25.371 Other instability, right ankle; M65.871 Other synovitis and tenosynovitis, right ankle and foot; W54.1XXA Struck by dog, initial encounter
CPT/HCPCS: 29229; 29240; 50004; 60001; 70002; 80102; 80144; 80212; 80360; 83419; 83612; 83860; 84038; 84522; 90074; 90100; 95059